=== PATIENT | female | born 1945 | race Caucasian/White ===

== ENCOUNTER 2017-05-19 10:17 | Observation (INO) | payer MEDICARE, MEDICAID ==
[~2017-05-19] VITALS: Ht 152.4 cm; Wt 79.0 kg
[~2017-05-19 10:17] MED LIST: ALBUTEROL; AZAT50TA9 PO; BUDE10.2 INH; CHOL5000 PO; DILT120C64 PO; LEVO112T4 PO; TIOT18CA INH
[2017-05-19] MEDS ORDERED: KETOROLAC 30 MG/1 ML IVPush ONE (11:00)
[2017-05-19] MEDS ORDERED: SODIUM CHLORIDE FLUSH 10ML SYR IVF ONE (11:00)
[2017-05-19 11:04] LABS: HEMATOCRIT 45.7 % (34.6-47.8); HEMOGLOBIN 15.3 g/dL (11.7-16.4); WHITE BLOOD COUNT 8.5 x10^3/uL (3.4-10)
[2017-05-19 11:15] LABS: BLOOD UREA NITROGEN 10 mg/dL (7-18)
[2017-05-19 11:21] LABS: IS PT STATUS REG ER OR PRE ER? YES
[2017-05-19] MEDS ORDERED: KETOROLAC 30 MG/1 ML ONE (11:26)
[2017-05-19 13:18] VITALS: BP 129/79
[2017-05-19] MEDS ORDERED: NITROGLYCERIN 0.4 MG BOTTLE (25 TABS) SL PRN (14:00)
[2017-05-19] MEDS ORDERED: hydrALAzine 20 MG/ML, 1ML IVPush PRN (14:00)
[2017-05-19] MEDS ORDERED: BISACODYL 10 MG SUPP PR PRN (14:00)
[2017-05-19] MEDS ORDERED: ONDANSETRON 2MG/ML, 2ML IVPush PRN (14:00)
[2017-05-19] MEDS ORDERED: ACETAMINOPHEN 325 MG TABLET PO PRN (14:00)
[2017-05-19] MEDS ORDERED: HYDROcodone/APAP 5/325 TABLET PO PRN (14:00)
[2017-05-19] MEDS ORDERED: morphine SULFATE 10 MG/ML, 1ML IVPush PRN (14:00)
[2017-05-19] MEDS ORDERED: POLYETHYLENE GLYCOL 17 GM PACKET PO PRN (14:00)
[2017-05-19] MEDS ORDERED: ENOXAPARIN 40 MG/0.4 ML SQ SCH (15:00)
[2017-05-19] MEDS ORDERED: OMNIPAQUE 350 MG/ML, 100ML BOTTLE ONE (15:52)
[2017-05-19 18:46] LABS: IS PT STATUS REG ER OR PRE ER? NO
[2017-05-19 19:50] VITALS: BP 109/71
[2017-05-19] MEDS ORDERED: ZOLPIDEM 5MG TABLET PO PRN (21:00)
[2017-05-19] MEDS ORDERED: DOCUSATE 100 MG CAPSULE PO PRN (21:00)
[2017-05-19] MEDS: SODIUM CHLORIDE FLUSH 10ML SYR IVF SCH (21:10)
[2017-05-20 01:09] LABS: IS PT STATUS REG ER OR PRE ER? NO
[2017-05-20 03:08] VITALS: BP 106/67
[2017-05-20 05:40] LABS: BLOOD UREA NITROGEN 14 mg/dL (7-18)
[2017-05-20] MEDS ORDERED: LEVOTHYROXINE 112 MCG TABLET PO SCH (06:00)
[2017-05-20] MEDS ORDERED: ASPIRIN 325 MG TABLET EC PO SCH (06:00)
[2017-05-20 07:33] VITALS: BP 115/72
[2017-05-20] MEDS: SODIUM CHLORIDE FLUSH 10ML SYR IVF SCH (07:51)
[2017-05-20] MEDS ORDERED: REGADENOSON 0.4 MG/5 ML SYRINGE ONE (08:45)
[2017-05-20] MEDS ORDERED: DILTIAZEM 120 MG CAP.ER.24H PO SCH (09:00)
[2017-05-20] MEDS ORDERED: FLUTICASONE/VILANTEROL 200-25MCG/INH INH SCH (09:00)
[2017-05-20] MEDS ORDERED: AZATHIOPRINE 50 MG TABLET PO SCH (09:00)
== END 2017-05-20 14:06 | disposition home or self-care (01) ==
LOC: ED 10:57 → INTOOBSV 11:56 → EDIP 11:56 → 5SO 12:51 → DCLOUNGE 05-20 14:06
PROVIDERS: ADMIT Family Medicine
DX: R07.89 Other chest pain (principal); M31.30 Wegener's granulomatosis without renal involvement; J44.9 Chronic obstructive pulmonary disease, unspecified; I11.9 Hypertensive heart disease without heart failure; J96.10 Chronic respiratory failure, unspecified whether with hypoxia or hypercapnia; E89.0 Postprocedural hypothyroidism; Z99.81 Dependence on supplemental oxygen; Z87.891 Personal history of nicotine dependence; Z82.49 Family history of ischemic heart disease and other diseases of the circulatory system
CPT/HCPCS: 36415; 71010; 71275; 78452; 80048; 80061; 82040; 84484; 85025; 85379; 93005; 93017; 96374; 99285; A9502; C9898; G0378; J1885; J2785; J7500; Q9967

== ENCOUNTER → 2017-06-09 | Outpatient (CLI) | payer MEDICARE, MEDICAID | END | disposition home or self-care (01) | LOC: CFH 10:28 | PROVIDERS: ATTEND Family Medicine | DX: Z13.820 Encounter for screening for osteoporosis (principal); M81.0 Age-related osteoporosis without current pathological fracture | CPT/HCPCS: 77080 ==

== ENCOUNTER → 2017-09-02 | Outpatient (CLI) | payer MEDICARE, MEDICAID | END | disposition home or self-care (01) | LOC: CFH 13:40 | PROVIDERS: ATTEND Internal Medicine Cardiovascular Disease | DX: I08.2 Rheumatic disorders of both aortic and tricuspid valves (principal); I27.0 Primary pulmonary hypertension; J44.9 Chronic obstructive pulmonary disease, unspecified; Z87.891 Personal history of nicotine dependence | CPT/HCPCS: 93306 ==

== ENCOUNTER → 2017-11-23 | Outpatient (CLI) | payer MEDICARE, MEDICAID | END | disposition home or self-care (01) | LOC: CFH 10:47 | PROVIDERS: ATTEND Internal Medicine | DX: J44.9 Chronic obstructive pulmonary disease, unspecified (principal); K80.20 Calculus of gallbladder without cholecystitis without obstruction | CPT/HCPCS: 71250 ==

== ENCOUNTER 2018-07-03 18:22 | Emergency (ER) | payer MEDICARE, MEDICAID ==
[~2018-07-03] VITALS: Ht 165.1 cm; Wt 86.4 kg
[2018-07-03] MEDS ORDERED: SODIUM CHLORIDE FLUSH 10ML SYR IVF ONE (19:00)
[2018-07-03 19:30] LABS: BASOPHILS # (AUTO) 0.07 x10^3/uL (0-0.1); BASOPHILS % (AUTO) 1 % (0-1); EOSINOPHILS # (AUTO) 0.31 x10^3/uL (0-0.4); EOSINOPHILS % (AUTO) 4 % (1-7); LYMPHOCYTES # (AUTO) 0.96 x10^3/uL (1-3.4); LYMPHOCYTES % (AUTO) 11 % (22-44); MD NO; MEAN CORPUSCULAR HEMOGLOBIN 32.4 pg (27.0-34.8); MEAN CORPUSCULAR HGB CONC 34.1 g/dL (32.4-35.8); MEAN PLATELET VOLUME 7.9 fL (7.4-10.4); MONOCYTES # (AUTO) 0.83 x10^3/uL (0.2-0.8); MONOCYTES % (AUTO) 10 % (2-9); NEUTROPHILS # (AUTO) 6.26 x10^3/uL (1.8-6.8); NEUTROPHILS % (AUTO) 74 % (42-75); PLATELET COUNT 249 x10^3/uL (130-400); RED BLOOD COUNT 4.67 x10^6/uL (3.82-5.3); RED CELL DISTRIBUTION WIDTH 13.9 % (9.6-15.2)
[2018-07-03 19:37] LABS: INTERNATIONAL NORMALIZED RATIO 0.97 (0.93-1.1)
[2018-07-03 19:39] LABS: ALBUMIN 3.3 g/dL (3.4-5.0); ANION GAP 7 mmol/L (5-15); CALCIUM 8.3 mg/dL (8.5-10.1); CHLORIDE 110 mmol/L (98-107); CREATININE 0.74 mg/dL (0.55-1.02)
[2018-07-03 19:43] LABS: TROPONIN I < 0.015 ng/mL (0.000-0.045)
[2018-07-03 22:25] VITALS: BP 135/65
== END 2018-07-03 22:26 | disposition home or self-care (01) ==
LOC: ED 21:12
DX: J43.9 Emphysema, unspecified (principal); I10 Essential (primary) hypertension; R79.1 Abnormal coagulation profile; Z87.891 Personal history of nicotine dependence
CPT/HCPCS: 36415; 71045; 80048; 82040; 83605; 83880; 84484; 85025; 85610; 85730; 87040; 93005; 99285

== ENCOUNTER 2018-10-06 16:46 | Outpatient (CLI) | payer MEDICARE, MEDICAID ==
[2018-10-15] MEDS ORDERED: LEVO100T5 PO (14:08)
[2018-10-15] MEDS ORDERED: FLUT1BLS3 INH (14:09)
[2018-10-15] MEDS ORDERED: ALBU0.63 NEB (14:11)
== END 2018-10-06 23:59 | disposition home or self-care (01) ==
LOC: CFH 16:46
PROVIDERS: ATTEND Nurse Practitioner Primary Care
DX: J92.9 Pleural plaque without asbestos (principal)
CPT/HCPCS: 71046

== ENCOUNTER 2019-02-16 13:23 | Emergency (ER) | payer MEDICARE, MEDICAID ==
[~2019-02-16] VITALS: Ht 152.4 cm; Wt 80.0 kg
[~2019-02-16 13:23] MED LIST changes: +ALBU0.63 NEB; +FLUT1BLS3 INH; +LEVO100T5 PO
[2019-02-16] MEDS ORDERED: ASPIRIN 81 MG TABLET CHEW PO ONE (13:30)
[2019-02-16 13:48] LABS: BASOPHILS # (AUTO) 0.02 x10^3/uL (0-0.1); BASOPHILS % (AUTO) 0 % (0-1); EOSINOPHILS % (AUTO) 0 % (1-7); LYMPHOCYTES # (AUTO) 0.45 x10^3/uL (1-3.4); LYMPHOCYTES % (AUTO) 3 % (22-44); MD NO; MEAN CORPUSCULAR HGB CONC 33.3 g/dL (32.4-35.8); MEAN CORPUSCULAR VOLUME 96.2 fL (80-100); MONOCYTES # (AUTO) 0.66 x10^3/uL (0.2-0.8); MONOCYTES % (AUTO) 4 % (2-9); NEUTROPHILS # (AUTO) 15.14 x10^3/uL (1.8-6.8); NEUTROPHILS % (AUTO) 93 % (42-75); PLATELET COUNT 238 x10^3/uL (130-400); RED BLOOD COUNT 4.75 x10^6/uL (3.82-5.3); RED CELL DISTRIBUTION WIDTH 14.3 % (9.6-15.2)
--- NOTE | 2019-02-16 13:48 | NUR ---
PT PLACED ON HEART MONITOR, BP CUFF, PULSE OX. SEE TRIAGE NOTE. PT DENIES PAIN OR DISCOMFORT AT THIS TIME. CALL LIGHT WITHIN REACH.
[2019-02-16 13:59] LABS: ALANINE AMINOTRANSFERASE 15 U/L (12-78); ALBUMIN 3.5 g/dL (3.4-5.0); ANION GAP 8 mmol/L (5-15); CALCIUM 8.6 mg/dL (8.5-10.1); CHLORIDE 107 mmol/L (98-107); CREATININE 0.88 mg/dL (0.55-1.02)
[2019-02-16] MEDS ORDERED: PLEASE ENTER HEIGHT AND WEIGHT MC SCH (14:00)
[2019-02-16 14:03] LABS: ALKALINE PHOSPHATASE 104 U/L (45-117); BILIRUBIN,TOTAL 0.4 mg/dL (0.2-1.0); TOTAL PROTEIN 7.2 g/dL (6.4-8.2); TROPONIN I < 0.015 ng/mL (0.000-0.045)
--- NOTE | 2019-02-16 14:50 | NUR ---
PT UP AND AMBULATED TO BR WITH STEADY GAIT. PT MISSED HAT COLLECTION FOR UA, ERP AWARE, UA CANCELLED. REPORT TO GUNNER CAREY, TRANSFER OF CARE AT THIS TIME.
--- NOTE | 2019-02-16 14:52 | NUR ---
Bedside SBAR report received from RN, Lily. Pt back to bed after attempting to give urine sample, replaced on monitors. Dr. Diggs to bedside to discuss ED findings and POC. Pt agrees to plan to discharge and follow up with gen surg outpatient or return to ED if worsening symptoms.
[2019-02-16 14:55] VITALS: BP 139/76
--- NOTE | 2019-02-16 15:38 | NUR ---
Patient/Caregiver given discharge instructions and they have confirmed that they understand the instructions. Patient ambulatory with steady gait.
[2019-02-16] MEDS ORDERED: TIOT18CA INH (18:32)
== END 2019-02-16 15:39 | disposition home or self-care (01) ==
LOC: ED 15:21
DX: R07.2 Precordial pain (principal); K80.70 Calculus of gallbladder and bile duct without cholecystitis without obstruction; I10 Essential (primary) hypertension; J44.9 Chronic obstructive pulmonary disease, unspecified; Z86.73 Personal history of transient ischemic attack (TIA), and cerebral infarction without residual deficits
CPT/HCPCS: 36415; 71045; 76700; 80053; 83880; 84484; 85025; 93005; 99284

== ENCOUNTER 2019-02-16 16:56 | Inpatient (IN) | payer MEDICARE, MEDICAID ==
[~2019-02-16] VITALS: Ht 154.9 cm; Wt 78.0 kg
--- NOTE | 2019-02-16 18:25 | NUR ---
Assumed care of patient. Seen here earlier today and was told she needed a cholecystectomy. Patient left AMA, but came back d/t persistent pain. NAD. Placed on NIBP and pulse ox. Will continue to monitor.
[2019-02-16] MEDS ORDERED: TIOT18CA INH (18:32)
[2019-02-16 19:03] LABS: ALANINE AMINOTRANSFERASE 16 U/L (12-78); ALBUMIN 3.5 g/dL (3.4-5.0); ANION GAP 8 mmol/L (5-15); CALCIUM 8.5 mg/dL (8.5-10.1); CHLORIDE 109 mmol/L (98-107)
[2019-02-16 19:05] LABS: ALKALINE PHOSPHATASE 103 U/L (45-117); BILIRUBIN,TOTAL 0.2 mg/dL (0.2-1.0); TOTAL PROTEIN 7.3 g/dL (6.4-8.2)
--- NOTE | 2019-02-16 19:31 | NUR ---
EDT at bedside attempting IV start. Patient is difficult stick.
--- NOTE | 2019-02-16 19:48 | NUR ---
Report to BURNER SHAFT. CHERRY Hernandez at bedside performing US IV.
[2019-02-16] MEDS ORDERED: SODIUM CHLORIDE 0.9% 1,000 ML IV SCH (19:57)
[2019-02-16] MEDS ORDERED: ACETAMINOPHEN 325 MG TABLET PO PRN (20:00)
[2019-02-16] MEDS ORDERED: morphine SULFATE 10 MG/ML, 1ML IVPush PRN (20:00)
[2019-02-16] MEDS ORDERED: POLYETHYLENE GLYCOL 17 GM PACKET PO PRN (20:00)
[2019-02-16] MEDS ORDERED: BISACODYL 10 MG SUPP PR PRN (20:00)
[2019-02-16] MEDS ORDERED: ONDANSETRON 2MG/ML, 2ML IVPush PRN (20:00)
[2019-02-16] MEDS ORDERED: BUPIVACAINE/PF-EPI 0.5% 1:200K ONE (20:11)
[2019-02-16] MEDS ORDERED: BUPIVACAINE/PF-EPI 0.5% 1:200K IM ONE (20:28)
[2019-02-16] MEDS ORDERED: ONDANSETRON 2MG/ML, 2ML ONE (20:52)
[2019-02-16] MEDS ORDERED: SUCCINYLCHOLINE 20 MG/ML, 10ML ONE (20:52)
[2019-02-16] MEDS ORDERED: PROPOFOL 10 MG/ML, 20ML ONE (20:52)
[2019-02-16] MEDS ORDERED: CEFOTETAN 2 GM ONE (20:52)
[2019-02-16] MEDS ORDERED: DEXAMETHASONE 4 MG/ML, 1ML ONE (20:52)
[2019-02-16] MEDS ORDERED: MEPERIDINE/PF 25MG/0.5ML IVPush PRN (21:30)
[2019-02-16] MEDS ORDERED: hydrALAzine 20 MG/ML, 1ML IV PRN (21:30)
[2019-02-16] MEDS ORDERED: HYDROmorphone 2 MG/ML, 1ML IVPush PRN (21:30)
[2019-02-16] MEDS ORDERED: LABETALOL 5MG/ML, 20ML IV PRN (21:30)
[2019-02-16] MEDS ORDERED: PROMETHAZINE 25 MG/ML, 1ML IV PRN (21:30)
[2019-02-16] MEDS ORDERED: OXYcodone 5 MG/5 ML ORAL.SOL UDC PO PRN (21:30)
[2019-02-16] MEDS ORDERED: ONDANSETRON 2MG/ML, 2ML IV PRN (21:30)
[2019-02-16] MEDS ORDERED: ALBUTEROL/IPRATROPIUM 2.5MG/0.5MG, 3 ML NPPB PRN (21:30)
[2019-02-16] MEDS ORDERED: FENTANYL PF 100 MCG/2ML ONE (21:51)
[2019-02-16] MEDS ORDERED: OXYcodone 5 MG/5 ML ORAL.SOL UDC ONE (21:51)
[2019-02-16] MEDS ORDERED: ALBUTEROL/IPRATROPIUM 2.5MG/0.5MG, 3 ML ONE (21:52)
[2019-02-16] MEDS: FENTANYL PF 100 MCG/2ML IV PRN ×2 (21:59→22:09)
[2019-02-16 22:53] VITALS: BP 124/66
[2019-02-17] VITALS: BP 115/68
[2019-02-17 04:37] VITALS: BP 107/64
[2019-02-17] MEDS: LEVOTHYROXINE 100 MCG TABLET PO SCH (05:37)
[2019-02-17 05:44] LABS: MEAN CORPUSCULAR HEMOGLOBIN 31.9 pg (27.0-34.8); MEAN CORPUSCULAR VOLUME 96.7 fL (80-100); MEAN PLATELET VOLUME 8.2 fL (7.4-10.4); PLATELET COUNT 209 x10^3/uL (130-400); RED CELL DISTRIBUTION WIDTH 14.4 % (9.6-15.2)
[2019-02-17 06:07] LABS: BASOPHILS # (AUTO) 0.03 x10^3/uL (0-0.1); BASOPHILS % (AUTO) 0 % (0-1); EOSINOPHILS % (AUTO) 0 % (1-7); LYMPHOCYTES # (AUTO) 0.13 x10^3/uL (1-3.4); LYMPHOCYTES % (AUTO) 1 % (22-44); MD SCAN; MONOCYTES # (AUTO) 0.98 x10^3/uL (0.2-0.8); MONOCYTES % (AUTO) 5 % (2-9); NEUTROPHILS # (AUTO) 17.54 x10^3/uL (1.8-6.8); NEUTROPHILS % (AUTO) 94 % (42-75)
[2019-02-17 06:21] LABS: ALANINE AMINOTRANSFERASE 41 U/L (12-78); ALBUMIN 3.2 g/dL (3.4-5.0); ANION GAP 7 mmol/L (5-15); CALCIUM 8.1 mg/dL (8.5-10.1); CHLORIDE 107 mmol/L (98-107)
[2019-02-17 06:24] LABS: ALKALINE PHOSPHATASE 96 U/L (45-117); BILIRUBIN,TOTAL 0.5 mg/dL (0.2-1.0); CREATININE 1.16 mg/dL (0.55-1.02); TOTAL PROTEIN 6.5 g/dL (6.4-8.2)
[2019-02-17] MEDS: IPRATROPIUM 0.5 MG/2.5 ML INHA NPPB SCH ×4 (07:00→19:46)
[2019-02-17 07:30] VITALS: BP 105/43
[2019-02-17] MEDS: SENNA/DOCUSATE TABLET PO SCH (08:24)
[2019-02-17] MEDS: DILTIAZEM 120 MG CAP.ER.24H PO SCH (08:25)
[2019-02-17] MEDS: AZATHIOPRINE 50 MG TABLET PO SCH (08:25)
[2019-02-17] MEDS: OXYcodone/APAP 5/325MG TABLET PO PRN ×3 (12:09→21:20)
[2019-02-17] MEDS ORDERED: PROMETHAZINE 25MG TABLET PO PRN (13:00)
[2019-02-17 14:21] VITALS: BP 105/68
[2019-02-17 20:52] VITALS: BP 109/64
[2019-02-18 00:05] VITALS: BP 125/67
[2019-02-18] MEDS: OXYcodone/APAP 5/325MG TABLET PO PRN ×3 (01:02→09:02)
[2019-02-18 05:02] LABS: MEAN CORPUSCULAR HGB CONC 32.9 g/dL (32.4-35.8); MEAN CORPUSCULAR VOLUME 97.2 fL (80-100); MEAN PLATELET VOLUME 8.2 fL (7.4-10.4); PLATELET COUNT 173 x10^3/uL (130-400); RED BLOOD COUNT 4.19 x10^6/uL (3.82-5.3); RED CELL DISTRIBUTION WIDTH 14.4 % (9.6-15.2)
[2019-02-18 05:09] LABS: ALBUMIN 2.7 g/dL (3.4-5.0); ANION GAP 4 mmol/L (5-15); CHLORIDE 105 mmol/L (98-107)
[2019-02-18 05:15] LABS: ALANINE AMINOTRANSFERASE 37 U/L (12-78); ALKALINE PHOSPHATASE 97 U/L (45-117); BILIRUBIN,TOTAL 0.4 mg/dL (0.2-1.0); CREATININE 0.83 mg/dL (0.55-1.02)
[2019-02-18] MEDS: LEVOTHYROXINE 100 MCG TABLET PO SCH (05:15)
[2019-02-18 05:30] LABS: BASOPHILS % (AUTO) 0 % (0-1); EOSINOPHILS # (AUTO) 0.11 x10^3/uL (0-0.4); EOSINOPHILS % (AUTO) 1 % (1-7); LYMPHOCYTES # (AUTO) 0.73 x10^3/uL (1-3.4); LYMPHOCYTES % (AUTO) 6 % (22-44); MD SCAN; MONOCYTES # (AUTO) 1.57 x10^3/uL (0.2-0.8); MONOCYTES % (AUTO) 12 % (2-9); NEUTROPHILS # (AUTO) 10.54 x10^3/uL (1.8-6.8); NEUTROPHILS % (AUTO) 81 % (42-75)
[2019-02-18] MEDS: IPRATROPIUM 0.5 MG/2.5 ML INHA NPPB SCH ×3 (07:00→12:20)
[2019-02-18 07:01] VITALS: BP 110/72
[2019-02-18] MEDS: POLYETHYLENE GLYCOL 17 GM PACKET PO SCH ×2 (09:00→10:51)
[2019-02-18] MEDS: DILTIAZEM 120 MG CAP.ER.24H PO SCH (09:02)
[2019-02-18] MEDS: AZATHIOPRINE 50 MG TABLET PO SCH (09:02)
[2019-02-18] MEDS: SENNA/DOCUSATE TABLET PO SCH (09:02)
[2019-02-18] MEDS ORDERED: POLY17PO5 PO (12:33)
[2019-02-18] MEDS ORDERED: DOCU-131 PO (12:33)
[2019-02-18] MEDS ORDERED: OXYC1TAB7 PO (12:33)
[2019-02-18 13:28] VITALS: BP 130/80
== END 2019-02-18 13:54 | disposition home or self-care (01) | DRG 417 ==
LOC: ED 19:27 → EDIP 19:29 → 4NOR 23:00 → DCLOUNGE 02-18 13:41
PROVIDERS: ADMIT Internal Medicine; ATTEND Internal Medicine
PROC: 0FT44ZZ Resection of Gallbladder, Percutaneous Endoscopic Approach (ICD-10-PCS; principal; 2019-02-16 21:00)
DX: K80.20 Calculus of gallbladder without cholecystitis without obstruction (principal); J96.20 Acute and chronic respiratory failure, unspecified whether with hypoxia or hypercapnia; M31.30 Wegener's granulomatosis without renal involvement; D89.9 Disorder involving the immune mechanism, unspecified; E11.9 Type 2 diabetes mellitus without complications; E89.0 Postprocedural hypothyroidism; F17.200 Nicotine dependence, unspecified, uncomplicated; I10 Essential (primary) hypertension; J43.9 Emphysema, unspecified; K76.0 Fatty (change of) liver, not elsewhere classified; Z66 Do not resuscitate; Z99.81 Dependence on supplemental oxygen
CPT/HCPCS: 36415; 71045; 76700; 80053; 83690; 83880; 84145; 84484; 85025; 88304; 93005; 94640; 96372; 99285; G0378; J1100; J2405; J2704; J3010; J7500; J7644; J0330; J2270; J3490; J7030

== ENCOUNTER → 2019-03-21 | Outpatient (CLI) | payer MEDICARE, MEDICAID ==
[~2019-03-21] MED LIST changes: +CEFOTETAN PMX 2GM/50ML 50 ML ONE; +DEXAMETHASONE 4 MG/ML, 1ML ONE; +DOCU-131 PO; +FENTANYL PF 250 MCG/5ML ONE; +ONDANSETRON 2MG/ML, 2ML ONE; +OXYC1TAB7 PO; +POLY17PO5 PO; +PROPOFOL 10 MG/ML, 20ML ONE; +SUCCINYLCHOLINE 20 MG/ML, 10ML ONE
== END | disposition home or self-care (01) ==
LOC: CFH 13:23
PROVIDERS: ATTEND Internal Medicine
DX: J43.2 Centrilobular emphysema (principal); M31.30 Wegener's granulomatosis without renal involvement; Z98.890 Other specified postprocedural states
CPT/HCPCS: 71250; J1100; J2405; J2704; J3010; J0330; J3490

== ENCOUNTER 2019-04-30 17:57 | Inpatient (IN) | payer MEDICARE, MEDICAID ==
[~2019-04-30] VITALS: Ht 154.9 cm; Wt 74.1 kg
[~2019-04-30 17:57] MED LIST changes: -CEFOTETAN PMX 2GM/50ML 50 ML ONE; -DEXAMETHASONE 4 MG/ML, 1ML ONE; -FENTANYL PF 250 MCG/5ML ONE; -ONDANSETRON 2MG/ML, 2ML ONE; -PROPOFOL 10 MG/ML, 20ML ONE; -SUCCINYLCHOLINE 20 MG/ML, 10ML ONE
[2019-04-30] MEDS ORDERED: ASPIRIN 81 MG TABLET CHEW PO ONE (18:30)
[2019-04-30] MEDS ORDERED: ASPIRIN 81 MG TABLET CHEW ONE (18:36)
[2019-04-30 18:43] LABS: BASOPHILS # (AUTO) 0.03 x10^3/uL (0-0.1); BASOPHILS % (AUTO) 0 % (0-1); EOSINOPHILS # (AUTO) 0.34 x10^3/uL (0-0.4); EOSINOPHILS % (AUTO) 4 % (1-7); LYMPHOCYTES # (AUTO) 1.24 x10^3/uL (1-3.4); LYMPHOCYTES % (AUTO) 15 % (22-44); MD NO; MEAN CORPUSCULAR HEMOGLOBIN 31.6 pg (27.0-34.8); MEAN CORPUSCULAR HGB CONC 33.1 g/dL (32.4-35.8); MEAN CORPUSCULAR VOLUME 95.6 fL (80-100); MEAN PLATELET VOLUME 8.2 fL (7.4-10.4); MONOCYTES # (AUTO) 0.76 x10^3/uL (0.2-0.8); MONOCYTES % (AUTO) 9 % (2-9); NEUTROPHILS # (AUTO) 6.12 x10^3/uL (1.8-6.8); NEUTROPHILS % (AUTO) 72 % (42-75); PLATELET COUNT 224 x10^3/uL (130-400); RED BLOOD COUNT 4.68 x10^6/uL (3.82-5.3); RED CELL DISTRIBUTION WIDTH 14.1 % (9.6-15.2)
--- NOTE | 2019-04-30 18:50 | NUR ---
THIS IS A 73 YO FEMALE WHO PRESENTS TO THE ER C/O LUQ PAIN RADIATING AROUND TO BACK SINCE 0800 THIS MORNING AND DESCRIBED "UNCOMFORTABLE LIKE MUSCLE PAIN" AND WORSE WITH MOVEMENT. PT RATES DISCMFORT AT 6/10. PT DENIES N/V/D OR WORSENING SOB. PT HAS HX OF COPD AND IS ON 5LNC HOME O2 AT ALL TIMES. PT AO X 4. SKIN PWD. RESP EVEN AND UNLABORED. PT ABLE TO SPEAK IN FULL 10-12 WORD SENTENCES W/O DIFFICULTY. PT ON CONT SUPERVISOR CHEMICAL, SPO2 AND BP MONITORS. CALL LIGHT WITHIN REACH. WILL CONT TO MONITOR PT.
[2019-04-30 18:54] LABS: ALBUMIN 3.3 g/dL (3.4-5.0); ANION GAP 7 mmol/L (5-15); CALCIUM 8.8 mg/dL (8.5-10.1); CHLORIDE 110 mmol/L (98-107)
[2019-04-30 19:00] LABS: ALANINE AMINOTRANSFERASE 16 U/L (12-78); ALKALINE PHOSPHATASE 103 U/L (45-117); BILIRUBIN,TOTAL 0.5 mg/dL (0.2-1.0); CREATININE 0.85 mg/dL (0.55-1.02); TOTAL PROTEIN 7.5 g/dL (6.4-8.2); TROPONIN I < 0.015 ng/mL (0.000-0.045)
--- NOTE | 2019-04-30 19:25 | NUR ---
PT TO IMAGING VIA [employer] AT THIS TIME.
[2019-04-30] MEDS ORDERED: MORPHINE SULFATE 4 MG/ML, 1ML ONE (19:50)
[2019-04-30] MEDS ORDERED: ONDANSETRON 2MG/ML, 2ML ONE (19:50)
[2019-04-30] MEDS ORDERED: MORPHINE SULFATE 4 MG/ML, 1ML IVPush PRN (20:00)
[2019-04-30] MEDS ORDERED: ONDANSETRON 2MG/ML, 2ML IVPush ONE (20:00)
[2019-04-30] MEDS ORDERED: OMNIPAQUE 350 MG/ML, 100ML BOTTLE ONE (20:00)
--- NOTE | 2019-04-30 20:06 | NUR ---
OPAL PA AT BEDSIDE FOR RECHECK/EXPLANATION OF RESULTS. PT REQUESTED PAIN MEDICATION FOR CONT 6/10 SHOULDER/SIDE PAIN. PT MEDICATED ORDERED. PT ALSO REQUESTED WATER, OKAY WITH ERMD THIERNO, PT PROVIDED WITH WATER. PT REPOSITIONED FOR COMFORT. PT NSR 90'S ON BRUSH OR BROOM CUTTER. RESP EVEN AND UNLABORED, PT ABLE TO SPEAK IN FULL 10-12 WORD SENTENCES W/O DIFFICULTY. PT ON CONT BP, CARDIAC AND O2 MONITORS. CALL LIGHT WITHIN REACH. WILL CONT TO MONITOR PT.
[2019-04-30] MEDS ORDERED: POTASSIUM CHLORIDE 20 MEQ TAB.ER.PRT PO ONE (20:30)
[2019-04-30] MEDS ORDERED: OXYcodone/APAP 5/325MG TABLET PO PRN (20:30)
[2019-04-30] MEDS ORDERED: FUROSEMIDE 40 MG/4 ML IV ONE (20:30)
--- NOTE | 2019-04-30 20:36 | NUR ---
ADMITTING MD MCCLELLAND AT BEDSIDE FOR EVAL. PT ON CONT BP, CARDIAC, AND O2 MONITORS. CALL LIGHT WITHIN REACH. CALL LIGHT WITHIN REACH. WILL CONT TO MONITOR PT.
[2019-04-30] MEDS ORDERED: FUROSEMIDE 40 MG/4 ML ONE (20:48)
[2019-04-30] MEDS ORDERED: POTASSIUM CHLORIDE 20 MEQ TAB.ER.PRT ONE ×2 (20:49→21:27)
[2019-04-30] MEDS ORDERED: ACETAMINOPHEN 325 MG TABLET PO PRN (21:00)
[2019-04-30] MEDS ORDERED: ONDANSETRON 2MG/ML, 2ML IVPush PRN (21:00)
[2019-04-30] MEDS ORDERED: DOCUSATE 100 MG CAPSULE ONE ×2 (21:24→21:27)
[2019-04-30] MEDS: DOCUSATE 100 MG CAPSULE PO SCH (21:32)
[2019-04-30] MEDS ORDERED: ALBUTEROL/IPRATROPIUM 2.5MG/0.5MG, 3 ML ONE (21:45)
[2019-04-30 22:25] VITALS: BP 111/67
[2019-04-30] MEDS: IPRATROPIUM 0.5 MG/2.5 ML INHA NPPB SCH (22:35)
[2019-04-30] MEDS: ALBUTEROL/IPRATROPIUM 2.5MG/0.5MG, 3 ML HHN PRN (22:35)
[2019-05-01 01:10] VITALS: BP 93/58
[2019-05-01 05:15] LABS: BASOPHILS # (AUTO) 0.04 x10^3/uL (0-0.1); BASOPHILS % (AUTO) 1 % (0-1); EOSINOPHILS # (AUTO) 0.35 x10^3/uL (0-0.4); EOSINOPHILS % (AUTO) 4 % (1-7); LYMPHOCYTES # (AUTO) 1.17 x10^3/uL (1-3.4); LYMPHOCYTES % (AUTO) 13 % (22-44); MD NO; MEAN CORPUSCULAR HEMOGLOBIN 31.7 pg (27.0-34.8); MEAN CORPUSCULAR HGB CONC 33.2 g/dL (32.4-35.8); MEAN CORPUSCULAR VOLUME 95.7 fL (80-100); MEAN PLATELET VOLUME 8.3 fL (7.4-10.4); MONOCYTES # (AUTO) 1.08 x10^3/uL (0.2-0.8); MONOCYTES % (AUTO) 12 % (2-9); NEUTROPHILS # (AUTO) 6.21 x10^3/uL (1.8-6.8); NEUTROPHILS % (AUTO) 70 % (42-75); PLATELET COUNT 203 x10^3/uL (130-400); RED BLOOD COUNT 4.45 x10^6/uL (3.82-5.3); RED CELL DISTRIBUTION WIDTH 14.9 % (9.6-15.2)
[2019-05-01 05:27] LABS: ANION GAP 7 mmol/L (5-15); CALCIUM 8.4 mg/dL (8.5-10.1); CHLORIDE 105 mmol/L (98-107)
[2019-05-01 05:33] LABS: CREATININE 0.91 mg/dL (0.55-1.02); TROPONIN I < 0.015 ng/mL (0.000-0.045)
[2019-05-01] MEDS: IPRATROPIUM 0.5 MG/2.5 ML INHA NPPB SCH ×3 (06:13→20:40)
[2019-05-01] MEDS: ALBUTEROL/IPRATROPIUM 2.5MG/0.5MG, 3 ML HHN PRN ×2 (06:13→20:39)
[2019-05-01 06:49] VITALS: BP 111/74
[2019-05-01] MEDS: LEVOTHYROXINE 100 MCG TABLET PO SCH (07:51)
[2019-05-01] MEDS ORDERED: TEMPLATE NON-FORMULARY MED. (Diltiazem Hcl (Cartia Xt) 120 MG) PO SCH (09:00)
[2019-05-01] MEDS ORDERED: TEMPLATE NON-FORMULARY MED. (Tiotropium Bromide** (Spiriva**) 18 MCG) INH SCH (09:00)
[2019-05-01] MEDS: DOCUSATE 100 MG CAPSULE PO SCH ×2 (10:53→21:00)
[2019-05-01] MEDS: METHOCARBAMOL 500 MG TABLET PO SCH ×3 (10:53→21:00)
[2019-05-01] MEDS: LIDODERM 5% PATCH TD SCH (10:54)
[2019-05-01] MEDS: DILTIAZEM 120 MG CAP.ER.24H PO SCH (10:54)
[2019-05-01 12:18] VITALS: BP 106/70
[2019-05-01 20:28] VITALS: BP 115/76
[2019-05-02 02:26] VITALS: BP 109/70
[2019-05-02] MEDS: METHOCARBAMOL 500 MG TABLET PO SCH ×2 (05:39→11:32)
[2019-05-02] MEDS: LEVOTHYROXINE 100 MCG TABLET PO SCH (05:39)
[2019-05-02 06:52] VITALS: BP 98/65
[2019-05-02] MEDS: ALBUTEROL/IPRATROPIUM 2.5MG/0.5MG, 3 ML HHN PRN (07:22)
[2019-05-02] MEDS: IPRATROPIUM 0.5 MG/2.5 ML INHA NPPB SCH (07:22)
[2019-05-02] MEDS: DOCUSATE 100 MG CAPSULE PO SCH (09:00)
[2019-05-02] MEDS: LIDODERM 5% PATCH TD SCH (09:18)
[2019-05-02] MEDS: DILTIAZEM 120 MG CAP.ER.24H PO SCH (09:18)
[2019-05-02] MEDS ORDERED: METH500T7 PO (12:17)
[2019-05-02] MEDS ORDERED: LIDO700A20 TD (12:17)
== END 2019-05-02 13:30 | disposition home or self-care (01) | DRG 313 ==
LOC: ED 20:16 → EDIP 20:39 → 4WST 22:13 → DCLOUNGE 05-02 13:21
PROVIDERS: ADMIT Internal Medicine; ATTEND Internal Medicine
DX: R07.89 Other chest pain (principal); J96.10 Chronic respiratory failure, unspecified whether with hypoxia or hypercapnia; M31.30 Wegener's granulomatosis without renal involvement; J96.11 Chronic respiratory failure with hypoxia; I27.20 Pulmonary hypertension, unspecified; E11.9 Type 2 diabetes mellitus without complications; E89.0 Postprocedural hypothyroidism; G89.29 Other chronic pain; M54.9 Dorsalgia, unspecified; I10 Essential (primary) hypertension; J43.9 Emphysema, unspecified; Z79.890 Hormone replacement therapy; Z87.891 Personal history of nicotine dependence; Z99.81 Dependence on supplemental oxygen
CPT/HCPCS: 36415; 71045; 71275; 80048; 80053; 83880; 84439; 84443; 84484; 85025; 93005; 93306; 94640; 96374; 96375; G0378; J1940; J2405; J7620; J7644; Q9967; J2270

== ENCOUNTER → 2019-11-07 | Outpatient (CLI) | payer MEDICARE, MEDICAID ==
[~2019-11-07] MED LIST changes: +DOXY100C2 PO; +LIDO700A20 TD; +METH500T7 PO; +OMNIPAQUE 350 MG/ML, 75ML BOTTLE ONE; +PRED20TA PO; +SPIR50TA4 PO; +TREP2.5T PO
== END | disposition home or self-care (01) ==
LOC: CFH 12:55
PROVIDERS: ATTEND Internal Medicine
DX: J32.0 Chronic maxillary sinusitis (principal); J01.10 Acute frontal sinusitis, unspecified; J44.9 Chronic obstructive pulmonary disease, unspecified; I27.29 Other secondary pulmonary hypertension; M31.30 Wegener's granulomatosis without renal involvement; R09.02 Hypoxemia
CPT/HCPCS: 70487; Q9967

== ENCOUNTER 2020-01-19 19:25 | Emergency (ER) | payer MEDICARE, MEDICAID ==
[~2020-01-19] VITALS: Ht 152.4 cm; Wt 65.9 kg
[~2020-01-19 19:25] MED LIST changes: -OMNIPAQUE 350 MG/ML, 75ML BOTTLE ONE
[2020-01-19] MEDS ORDERED: ALBUTEROL/IPRATROPIUM 2.5MG/0.5MG, 3 ML ONE (19:56)
--- NOTE | 2020-01-19 19:59 | NUR ---
PT CAME IN CO OF "EVERYTIME I GET UP AND MOVE AROUND I BECOME SOB AND MY PULSE OX DROPS TO THE LOW 80S". PT HAS HX OF COPD. WEARS 5 LITERS VIA NC ALL THE TIME AT HOME. PT IS CURRENTLY 98% ON 5 LITERS. RESTING IN [facility]. IV STARTED. EKG COMPLETE.
[2020-01-19] MEDS ORDERED: ALBUTEROL/IPRATROPIUM 2.5MG/0.5MG, 3 ML NPPB ONE (20:00)
--- NOTE | 2020-01-19 20:24 | NUR ---
PT RESTING IN [place]. PAN[place]OS. LAB IN WITH PT AT THIS TIME
--- NOTE | 2020-01-19 20:46 | NUR ---
BREATHING TREATMENT STARTED. PT TOLERATING WELL
[2020-01-19 20:59] LABS: BASOPHILS # (AUTO) 0.06 x10^3/uL (0-0.1); BASOPHILS % (AUTO) 1 % (0-1); EOSINOPHILS # (AUTO) 0.22 x10^3/uL (0-0.4); EOSINOPHILS % (AUTO) 2 % (1-7); LYMPHOCYTES # (AUTO) 1.05 x10^3/uL (1-3.4); LYMPHOCYTES % (AUTO) 10 % (22-44); MD NO; MEAN CORPUSCULAR HEMOGLOBIN 29.4 pg (27.0-34.8); MEAN CORPUSCULAR HGB CONC 32.7 g/dL (32.4-35.8); MEAN CORPUSCULAR VOLUME 89.8 fL (80-100); MEAN PLATELET VOLUME 7.7 fL (7.4-10.4); MONOCYTES # (AUTO) 0.83 x10^3/uL (0.2-0.8); MONOCYTES % (AUTO) 8 % (2-9); NEUTROPHILS # (AUTO) 8.64 x10^3/uL (1.8-6.8); NEUTROPHILS % (AUTO) 80 % (42-75); PLATELET COUNT 267 x10^3/uL (130-400); RED BLOOD COUNT 5.08 x10^6/uL (3.82-5.3); RED CELL DISTRIBUTION WIDTH 14.6 % (9.6-15.2)
[2020-01-19 21:07] LABS: ALANINE AMINOTRANSFERASE 21 U/L (12-78); ALBUMIN 3.3 g/dL (3.4-5.0); ANION GAP 8 mmol/L (5-15); CHLORIDE 106 mmol/L (98-107); CREATININE 0.87 mg/dL (0.55-1.02)
[2020-01-19 21:12] LABS: ALKALINE PHOSPHATASE 127 U/L (45-117); BILIRUBIN,TOTAL 0.3 mg/dL (0.2-1.0); TOTAL PROTEIN 7.3 g/dL (6.4-8.2); TROPONIN I < 0.015 ng/mL (0.000-0.045)
[2020-01-19 21:43] VITALS: BP 110/64
--- NOTE | 2020-01-19 21:43 | NUR ---
PT RESTING IN [place]. WATCHING TV. REPORTS THAT "I FEEL BETTER AFTER THAT BREATHING TREATMENT"
== END 2020-01-19 23:20 | disposition other institution (70) ==
LOC: ED 19:52
DX: J44.1 Chronic obstructive pulmonary disease with (acute) exacerbation (principal); J98.01 Acute bronchospasm; I10 Essential (primary) hypertension; E11.9 Type 2 diabetes mellitus without complications; Z87.891 Personal history of nicotine dependence
CPT/HCPCS: 36415; 71045; 80053; 83605; 83880; 84484; 85025; 87040; 93005; 94640; 99285

== ENCOUNTER → 2020-03-18 | Outpatient (CLI) | payer MEDICARE, MEDICAID | END | disposition home or self-care (01) | LOC: CFH 14:53 | PROVIDERS: ATTEND Internal Medicine Cardiovascular Disease | DX: I08.8 Other rheumatic multiple valve diseases (principal); I27.29 Other secondary pulmonary hypertension | CPT/HCPCS: 93306 ==

== ENCOUNTER → 2020-10-02 | Outpatient (CLI) | payer MEDICARE, MEDICAID ==
[~2020-10-02] MED LIST changes: +APIX5TAB PO; +FLUT1BLS INH; +LEVO100V8 PO; +MACI10TA PO
== END | disposition home or self-care (01) ==
LOC: CFH 12:54
PROVIDERS: ATTEND Internal Medicine
DX: J43.9 Emphysema, unspecified (principal); I27.20 Pulmonary hypertension, unspecified; I25.10 Atherosclerotic heart disease of native coronary artery without angina pectoris; M85.88 Other specified disorders of bone density and structure, other site; M31.30 Wegener's granulomatosis without renal involvement; M43.8X4 Other specified deforming dorsopathies, thoracic region; J96.21 Acute and chronic respiratory failure with hypoxia
CPT/HCPCS: 71250

== ENCOUNTER 2021-02-11 14:13 | Emergency (ER) | payer MEDICARE, MEDICAID ==
[~2021-02-11] VITALS: Ht 152.4 cm; Wt 61.0 kg
[~2021-02-11 14:13] MED LIST changes: +METH-639 PO; -METH500T7 PO
[2021-02-11 14:17] VITALS: BP 114/75
== END 2021-02-11 14:44 | disposition home or self-care (01) ==
LOC: ED 14:38
DX: J96.10 Chronic respiratory failure, unspecified whether with hypoxia or hypercapnia (principal); J44.9 Chronic obstructive pulmonary disease, unspecified; R94.31 Abnormal electrocardiogram [ECG] [EKG]; I10 Essential (primary) hypertension; E11.9 Type 2 diabetes mellitus without complications
CPT/HCPCS: 93005; 99283

== ENCOUNTER 2021-02-14 16:15 | Emergency (ER) | payer MEDICARE, MEDICAID ==
[~2021-02-14] VITALS: Ht 152.4 cm; Wt 60.0 kg
--- NOTE | 2021-02-14 16:39 | NUR ---
CC OF SOB AND COUGH. PT STATES SHE HAD SPILLED WATER ON HER OXYGEN CONCENTRATOR AND HAS BEEN INHALING WATER SINCE THEN AND STARTED COUGHING. PT WAS SEEN HERE WEDNESDAY AND TOLD TO FOLLOW UP WITH CARDS AND PULM. PT STATES SHE HAS CARDS F/U ON February AND PULM IS UNABLE TO SEE HER UNTIL . HX OF COPD AND ON 6 L O2.
[2021-02-14] MEDS ORDERED: ALBUTEROL/IPRATROPIUM 2.5MG/0.5MG, 3 ML ONE (17:19)
[2021-02-14 17:26] LABS: BASOPHILS % (AUTO) 1 % (0-1); EOSINOPHILS % (AUTO) 3 % (1-7); LYMPHOCYTES % (AUTO) 13 % (22-44); MEAN CORPUSCULAR HEMOGLOBIN 30.7 pg (27.0-34.8); MEAN PLATELET VOLUME 7.2 fL (7.4-10.4); MONOCYTES % (AUTO) 10 % (2-9); NEUTROPHILS % (AUTO) 74 % (42-75); PLATELET COUNT 220 x10^3/uL (130-400); RED BLOOD COUNT 4.72 x10^6/uL (3.82-5.3); RED CELL DISTRIBUTION WIDTH 13.9 % (9.6-15.2)
[2021-02-14 17:29] LABS: MD NO
[2021-02-14] MEDS ORDERED: ALBUTEROL/IPRATROPIUM 2.5MG/0.5MG, 3 ML NPPB ONE (17:30)
[2021-02-14 17:39] LABS: ALANINE AMINOTRANSFERASE 19 U/L (12-78); ALBUMIN 3.2 g/dL (3.4-5.0); ANION GAP 5 mmol/L (5-15); CALCIUM 8.3 mg/dL (8.5-10.1); CHLORIDE 108 mmol/L (98-107); CREATININE 0.85 mg/dL (0.55-1.02)
[2021-02-14 17:44] LABS: ALKALINE PHOSPHATASE 94 U/L (45-117); BILIRUBIN,TOTAL 0.3 mg/dL (0.2-1.0); TOTAL PROTEIN 6.3 g/dL (6.4-8.2); TROPONIN I < 0.015 ng/mL (0.000-0.045)
[2021-02-14 19:18] VITALS: BP 121/73
== END 2021-02-14 19:20 | disposition home or self-care (01) ==
LOC: ED 16:48
DX: I27.0 Primary pulmonary hypertension (principal); R06.00 Dyspnea, unspecified; R94.31 Abnormal electrocardiogram [ECG] [EKG]
CPT/HCPCS: 36415; 71045; 80053; 83880; 84484; 85025; 93005; 94640; 99285; J7512

== ENCOUNTER 2021-04-29 15:55 | Inpatient (IN) | payer MEDICARE, MEDICAID ==
[~2021-04-29] VITALS: Ht 154.9 cm; Wt 68.8 kg
--- NOTE | 2021-04-29 16:08 | NUR ---
BIBA FROM HOME WITH C/O SOB X 2 DAYS, DENIES CP. PER EMS, PT HAS COPD AND NORMALLY WEARS 6L O2 AT HOME, HOME O2 SAT WAS 70S, PLACED ON 10L 02, NOW O2 SAT 97% PT A&O, RESPS EVEN AND RAPID, VSS, NADN. CALL LIGHT IN REACH, ALL MONITORS ATTACHED, SINUS TACH.
--- NOTE | 2021-04-29 16:14 | NUR ---
OPAL RENAE AT BEDSIDE FOR EVAL
[2021-04-29] MEDS ORDERED: methylPREDNISolone SOD SUCC 125 MG/2 ML ONE (16:25)
[2021-04-29] MEDS ORDERED: methylPREDNISolone SOD SUCC 125 MG/2 ML IV ONE (16:30)
[2021-04-29] MEDS ORDERED: SODIUM CHLORIDE FLUSH 10ML SYR IVF ONE (16:30)
[2021-04-29] MEDS ORDERED: ALBUTEROL/IPRATROPIUM 2.5MG/0.5MG, 3 ML NPPB SCH (16:30)
[2021-04-29] MEDS ORDERED: FURO20TA3 PO ×2 (16:47→16:54)
[2021-04-29] MEDS ORDERED: POTA10CA PO ×2 (16:47→16:54)
--- NOTE | 2021-04-29 16:56 | NUR ---
PIV placed, labs drawn, meds admin per order, pt tolerated well. pt a&o, resps even and unlabored, vss, nadn. all monitors attached, nsr.
[2021-04-29] MEDS ORDERED: ALBUTEROL SULFATE 2.5 MG/3 ML ONE (17:00)
[2021-04-29 17:02] LABS: BASOPHILS % (AUTO) 1 % (0-1); EOSINOPHILS % (AUTO) 2 % (1-7); LYMPHOCYTES % (AUTO) 12 % (22-44); MEAN CORPUSCULAR HEMOGLOBIN 30.3 pg (27.0-34.8); MEAN CORPUSCULAR HGB CONC 33.9 g/dL (32.4-35.8); MEAN PLATELET VOLUME 7.6 fL (7.4-10.4); MONOCYTES % (AUTO) 8 % (2-9); NEUTROPHILS % (AUTO) 77 % (42-75); PLATELET COUNT 218 x10^3/uL (130-400); RED BLOOD COUNT 5.26 x10^6/uL (3.82-5.3); RED CELL DISTRIBUTION WIDTH 13.2 % (9.6-15.2)
[2021-04-29 17:06] LABS: CALCIUM 9.1 mg/dL (8.5-10.1); CHLORIDE 105 mmol/L (98-107)
[2021-04-29 17:15] LABS: ALBUMIN 3.4 g/dL (3.4-5.0); ANION GAP 8 mmol/L (5-15); CREATININE 0.91 mg/dL (0.55-1.02); TROPONIN I < 0.015 ng/mL (0.000-0.045)
--- NOTE | 2021-04-29 17:19 | NUR ---
breathing tx in progress, pt tolerating well, vss, nadn.
--- NOTE | 2021-04-29 18:00 | NUR ---
pt sitting in bed, a&o, resps even and unlabored, vss, nadn. all monitors attached, nsr.
--- NOTE | 2021-04-29 18:49 | NUR ---
report given to Fabiola CAREY
--- NOTE | 2021-04-29 18:50 | NUR ---
FIRST ENCOUNTER WITH PATIENT. PATIENT SITTING ON EDGE OF STRETCHER REQUESTING WATER. OK FOR PATIENT TO HAVE WATER PER MD RENAE. OC REQUESTING RT TO COME TO BEDSIDE AND INITIATE HIGH FLOW NC. WILL CALL RT.
--- NOTE | 2021-04-29 19:08 | NUR ---
RT AT BEDSIDE
[2021-04-29] MEDS ORDERED: SODIUM CHLORIDE FLUSH 10ML SYR IVF PRN (19:30)
[2021-04-29] MEDS ORDERED: GUAIFENESIN/DM 200-20MG, 10ML UDC PO PRN (20:00)
[2021-04-29] MEDS ORDERED: POLYETHYLENE GLYCOL 17 GM PACKET PO PRN (20:00)
[2021-04-29] MEDS ORDERED: BISACODYL 10 MG SUPP PR PRN (20:00)
[2021-04-29] MEDS: HEPARIN 5,000 UNITS/ML, 1ML SQ SCH (20:00)
[2021-04-29] MEDS ORDERED: ONDANSETRON ODT 4 MG PO PRN (20:00)
[2021-04-29] MEDS ORDERED: POTASSIUM CHLORIDE 10 MEQ TABLET.ER PO PRN (20:00)
--- NOTE | 2021-04-29 20:00 | NUR ---
REPORT GIVEN TO CHERRY CHURCH
[2021-04-29] MEDS ORDERED: IPRATROPIUM 0.5 MG/2.5 ML INHA NPPB SCH (20:30)
[2021-04-29 20:41] VITALS: BP 108/71
[2021-04-29] MEDS: SODIUM CHLORIDE FLUSH 10ML SYR IVF SCH (20:51)
[2021-04-29] MEDS: TREPROSTINIL DIOLAMINE PO SCH (21:00)
[2021-04-30] MEDS: ACETAMINOPHEN 325 MG TABLET PO PRN ×2 (00:05→14:19)
[2021-04-30] MEDS: methylPREDNISolone SOD SUCC 125 MG/2 ML IVPush SCH ×4 (00:06→17:21)
[2021-04-30 00:54] VITALS: BP 102/73
[2021-04-30] MEDS: HEPARIN 5,000 UNITS/ML, 1ML SQ SCH ×3 (03:10→20:00)
[2021-04-30 05:44] LABS: BASOPHILS % (AUTO) 1 % (0-1); EOSINOPHILS % (AUTO) 0 % (1-7); LYMPHOCYTES % (AUTO) 7 % (22-44); MEAN CORPUSCULAR HEMOGLOBIN 30.2 pg (27.0-34.8); MEAN CORPUSCULAR HGB CONC 34.1 g/dL (32.4-35.8); MEAN PLATELET VOLUME 7.4 fL (7.4-10.4); MONOCYTES % (AUTO) 1 % (2-9); NEUTROPHILS % (AUTO) 91 % (42-75); PLATELET COUNT 202 x10^3/uL (130-400); RED BLOOD COUNT 5.05 x10^6/uL (3.82-5.3); RED CELL DISTRIBUTION WIDTH 13.1 % (9.6-15.2)
[2021-04-30 05:58] LABS: ANION GAP 5 mmol/L (5-15); CALCIUM 8.9 mg/dL (8.5-10.1); CHLORIDE 107 mmol/L (98-107)
[2021-04-30] MEDS: LEVOTHYROXINE 88 MCG TABLET PO SCH (05:58)
[2021-04-30] MEDS: ALBUTEROL/IPRATROPIUM 2.5MG/0.5MG, 3 ML NPPB SCH ×5 (06:52→19:16)
[2021-04-30 07:04] VITALS: BP 103/65
[2021-04-30] MEDS: TEMPLATE NON-FORMULARY MED. (Macitentan** (Opsumit**) 10 MG) PO SCH (07:38)
[2021-04-30] MEDS: SODIUM CHLORIDE FLUSH 10ML SYR IVF SCH ×2 (07:41→21:02)
[2021-04-30] MEDS: FUROSEMIDE 20 MG TABLET PO SCH (07:41)
[2021-04-30] MEDS: SENNA/DOCUSATE TABLET PO SCH (07:43)
[2021-04-30] MEDS ORDERED: SPIRONOLACTONE 50 MG TABLET PO SCH (09:00)
[2021-04-30] MEDS ORDERED: TIOTROPIUM BROMIDE 18 MCG/INH INH SCH ×2 (09:00)
[2021-04-30] MEDS: TREPROSTINIL DIOLAMINE PO SCH (09:00)
[2021-04-30] MEDS ORDERED: SILDENAFIL 20 MG TABLET PO SCH (12:30)
[2021-04-30 12:40] VITALS: BP 108/68
[2021-04-30] MEDS: SPIRONOLACTONE 50 MG TABLET PO SCH (12:50)
[2021-04-30] MEDS: SILDENAFIL 20 MG TABLET PO SCH (16:00)
[2021-04-30] MEDS ORDERED: UPTRAVI 800 MCG HOMEMEDPO SCH (20:00)
[2021-04-30 20:01] VITALS: BP 110/69
[2021-04-30] MEDS: UPTRAVI 800 MCG HOMEMEDPO SCH (21:01)
[2021-05-01] MEDS: SILDENAFIL 20 MG TABLET PO SCH ×4 (00:02→23:35)
[2021-05-01] MEDS: methylPREDNISolone SOD SUCC 125 MG/2 ML IVPush SCH ×5 (00:02→23:35)
[2021-05-01 00:35] VITALS: BP 108/70
[2021-05-01] MEDS: HEPARIN 5,000 UNITS/ML, 1ML SQ SCH ×3 (04:00→19:47)
[2021-05-01] MEDS: LEVOTHYROXINE 88 MCG TABLET PO SCH (06:16)
[2021-05-01] MEDS: UPTRAVI 800 MCG HOMEMEDPO SCH ×2 (08:00→19:51)
[2021-05-01] MEDS: FUROSEMIDE 20 MG TABLET PO SCH (08:32)
[2021-05-01] MEDS: SENNA/DOCUSATE TABLET PO SCH (08:33)
[2021-05-01] MEDS: TEMPLATE NON-FORMULARY MED. (Macitentan** (Opsumit**) 10 MG) PO SCH (08:34)
[2021-05-01 08:47] VITALS: BP 109/69
[2021-05-01] MEDS: SODIUM CHLORIDE FLUSH 10ML SYR IVF SCH ×2 (09:00→19:52)
[2021-05-01] MEDS: ALBUTEROL/IPRATROPIUM 2.5MG/0.5MG, 3 ML NPPB SCH ×4 (10:40→20:00)
[2021-05-01] MEDS: SPIRONOLACTONE 50 MG TABLET PO SCH (13:42)
[2021-05-01] MEDS: ACETAMINOPHEN 325 MG TABLET PO PRN ×2 (13:50→23:43)
[2021-05-01 14:53] VITALS: BP 103/61
[2021-05-01] MEDS: FLUTICASONE NASAL SPRAY 16GM NAS SCH (19:53)
[2021-05-01 19:55] VITALS: BP 125/65
[2021-05-01 21:16] VITALS: BP 112/74
[2021-05-02 01:31] VITALS: BP 110/66
[2021-05-02] MEDS: HEPARIN 5,000 UNITS/ML, 1ML SQ SCH ×3 (04:00→20:00)
[2021-05-02] MEDS: LEVOTHYROXINE 88 MCG TABLET PO SCH (05:52)
[2021-05-02] MEDS: methylPREDNISolone SOD SUCC 125 MG/2 ML IVPush SCH ×4 (05:53→23:00)
[2021-05-02] MEDS: ACETAMINOPHEN 325 MG TABLET PO PRN (06:36)
[2021-05-02] MEDS: ALBUTEROL/IPRATROPIUM 2.5MG/0.5MG, 3 ML NPPB SCH ×4 (07:00→19:15)
[2021-05-02] MEDS: SILDENAFIL 20 MG TABLET PO SCH ×3 (07:49→23:00)
[2021-05-02] MEDS: FLUTICASONE NASAL SPRAY 16GM NAS SCH ×2 (07:49→21:00)
[2021-05-02] MEDS: FUROSEMIDE 20 MG TABLET PO SCH (07:49)
[2021-05-02] MEDS: TEMPLATE NON-FORMULARY MED. (Macitentan** (Opsumit**) 10 MG) PO SCH (07:50)
[2021-05-02] MEDS: SENNA/DOCUSATE TABLET PO SCH (07:50)
[2021-05-02] MEDS: UPTRAVI 800 MCG HOMEMEDPO SCH (07:51)
[2021-05-02 08:26] VITALS: BP 110/72
[2021-05-02] MEDS: SODIUM CHLORIDE FLUSH 10ML SYR IVF SCH ×2 (09:00→21:00)
[2021-05-02] MEDS: SPIRONOLACTONE 50 MG TABLET PO SCH (12:39)
[2021-05-02] MEDS: LIDODERM 5% PATCH TD SCH (13:57)
[2021-05-02 14:00] VITALS: BP 126/74
[2021-05-02 19:20] VITALS: BP 105/68
[2021-05-02] MEDS: UPTRAVI 1000 MCG HOMEMEDPO SCH (20:00)
[2021-05-03 00:56] VITALS: BP 105/63
[2021-05-03] MEDS: HEPARIN 5,000 UNITS/ML, 1ML SQ SCH ×2 (04:00→12:00)
[2021-05-03] MEDS ORDERED: LEVOTHYROXINE 100 MCG TABLET PO SCH (06:00)
[2021-05-03] MEDS: methylPREDNISolone SOD SUCC 125 MG/2 ML IVPush SCH ×2 (06:03→12:11)
[2021-05-03] MEDS: ALBUTEROL/IPRATROPIUM 2.5MG/0.5MG, 3 ML NPPB SCH (06:53)
[2021-05-03 07:15] VITALS: BP 121/64
[2021-05-03] MEDS: FLUTICASONE NASAL SPRAY 16GM NAS SCH (07:30)
[2021-05-03] MEDS: SENNA/DOCUSATE TABLET PO SCH (07:31)
[2021-05-03] MEDS: SILDENAFIL 20 MG TABLET PO SCH (07:31)
[2021-05-03] MEDS: TEMPLATE NON-FORMULARY MED. (Macitentan** (Opsumit**) 10 MG) PO SCH (07:32)
[2021-05-03] MEDS: UPTRAVI 1000 MCG HOMEMEDPO SCH (07:32)
[2021-05-03] MEDS: FUROSEMIDE 20 MG TABLET PO SCH (07:33)
[2021-05-03] MEDS: SODIUM CHLORIDE FLUSH 10ML SYR IVF SCH (07:40)
[2021-05-03] MEDS ORDERED: ALBUTEROL/IPRATROPIUM 2.5MG/0.5MG, 3 ML NPPB PRN (11:00)
[2021-05-03] MEDS: LIDODERM 5% PATCH TD SCH (12:11)
[2021-05-03] MEDS: SPIRONOLACTONE 50 MG TABLET PO SCH (12:11)
[2021-05-03] MEDS ORDERED: SILD20TA PO (12:50)
[2021-05-03] MEDS ORDERED: FLUT16SP24 NAS (12:50)
[2021-05-03] MEDS ORDERED: LIDO700A20 TD (12:50)
== END 2021-05-03 14:28 | disposition home or self-care (01) | DRG 189 ==
LOC: ED 17:31 → EDIP 19:21 → 3N 20:22
PROVIDERS: ADMIT Student in an Organized Health Care Education/Training Program; ATTEND Family Medicine
DX: J96.21 Acute and chronic respiratory failure with hypoxia (principal); J44.1 Chronic obstructive pulmonary disease with (acute) exacerbation; M31.30 Wegener's granulomatosis without renal involvement; J90 Pleural effusion, not elsewhere classified; E89.0 Postprocedural hypothyroidism; I10 Essential (primary) hypertension; J84.10 Pulmonary fibrosis, unspecified; Z66 Do not resuscitate; Z90.12 Acquired absence of left breast and nipple; Z99.81 Dependence on supplemental oxygen; I27.21 Secondary pulmonary arterial hypertension; Z87.891 Personal history of nicotine dependence
CPT/HCPCS: 36415; 71045; 80048; 82040; 83605; 83880; 84484; 85025; 87040; 93005; 93306; 94640; 96374; G0378; J2930

== ENCOUNTER 2021-06-09 20:52 | Inpatient (IN) | payer MEDICARE, MEDICAID ==
[~2021-06-09] VITALS: Ht 152.4 cm; Wt 50.2 kg
[~2021-06-09 20:52] MED LIST changes: -DOXY100C2 PO; +DOXY100C5 PO; +FLUT16SP24 NAS; +FURO20TA3 PO; +POTA10CA PO; +SILD20TA PO
[2021-06-09] MEDS ORDERED: methylPREDNISolone SOD SUCC 125 MG/2 ML ONE (21:25)
[2021-06-09] MEDS ORDERED: ALBUTEROL/IPRATROPIUM 2.5MG/0.5MG, 3 ML ONE (21:25)
[2021-06-09] MEDS ORDERED: methylPREDNISolone SOD SUCC 125 MG/2 ML IV ONE (21:30)
[2021-06-09] MEDS ORDERED: ALBUTEROL/IPRATROPIUM 2.5MG/0.5MG, 3 ML NPPB ONE (21:30)
[2021-06-09 21:33] LABS: BASOPHILS % (AUTO) 1 % (0-1); EOSINOPHILS % (AUTO) 1 % (1-7); LYMPHOCYTES % (AUTO) 8 % (22-44); MEAN CORPUSCULAR HGB CONC 34.5 g/dL (32.4-35.8); MEAN PLATELET VOLUME 7.5 fL (7.4-10.4); NEUTROPHILS % (AUTO) 71 % (42-75); PLATELET COUNT 193 x10^3/uL (130-400); RED BLOOD COUNT 5.21 x10^6/uL (3.82-5.3); RED CELL DISTRIBUTION WIDTH 14.6 % (9.6-15.2)
[2021-06-09 21:42] LABS: ALANINE AMINOTRANSFERASE 13 U/L (12-78); ALBUMIN 3.4 g/dL (3.4-5.0); ANION GAP 8 mmol/L (5-15); CALCIUM 8.4 mg/dL (8.5-10.1); CHLORIDE 102 mmol/L (98-107); CREATININE 0.87 mg/dL (0.55-1.02)
[2021-06-09 21:47] LABS: ALKALINE PHOSPHATASE 103 U/L (45-117); BILIRUBIN,TOTAL 0.5 mg/dL (0.2-1.0); TOTAL PROTEIN 7.4 g/dL (6.4-8.2); TROPONIN I < 0.015 ng/mL (0.000-0.045)
[2021-06-09] MEDS ORDERED: OMNIPAQUE 350 MG/ML, 100ML BOTTLE ONE (22:00)
[2021-06-09 22:11] LABS: MONOCYTES % (AUTO) 19 % (2-9)
[2021-06-09] MEDS ORDERED: FUROSEMIDE 20 MG/2 ML IV ONE (22:30)
[2021-06-10] MEDS ORDERED: ONDANSETRON ODT 4 MG PO PRN
[2021-06-10] MEDS ORDERED: GUAIFENESIN/DM 200-20MG, 10ML UDC PO PRN
[2021-06-10] MEDS ORDERED: ENALAPRILAT 1.25 MG/ML, 2ML IVPush PRN
[2021-06-10] MEDS ORDERED: ONDANSETRON 2MG/ML, 2ML IVPush PRN
[2021-06-10] MEDS ORDERED: SELE800T PO (01:00)
[2021-06-10] MEDS: ENOXAPARIN 40 MG/0.4 ML SQ SCH (01:02)
[2021-06-10 01:08] VITALS: BP 103/70
[2021-06-10] MEDS: methylPREDNISolone SOD SUCC 125 MG/2 ML IVPush SCH ×3 (06:13→18:34)
[2021-06-10] MEDS: LEVOTHYROXINE 88 MCG TABLET PO SCH (06:13)
[2021-06-10 07:26] LABS: BASOPHILS % (AUTO) 1 % (0-1); EOSINOPHILS % (AUTO) 0 % (1-7); LYMPHOCYTES % (AUTO) 6 % (22-44); MEAN CORPUSCULAR HEMOGLOBIN 30.5 pg (27.0-34.8); MEAN CORPUSCULAR HGB CONC 33.8 g/dL (32.4-35.8); MONOCYTES % (AUTO) 2 % (2-9); NEUTROPHILS % (AUTO) 91 % (42-75); PLATELET COUNT 189 x10^3/uL (130-400); RED BLOOD COUNT 5.14 x10^6/uL (3.82-5.3); RED CELL DISTRIBUTION WIDTH 14.1 % (9.6-15.2)
[2021-06-10 07:27] LABS: CHLORIDE 103 mmol/L (98-107)
[2021-06-10] MEDS ORDERED: FUROSEMIDE 20 MG/2 ML IV SCH (07:30)
[2021-06-10 07:42] LABS: ANION GAP 9 mmol/L (5-15); CALCIUM 8.8 mg/dL (8.5-10.1); CREATININE 0.86 mg/dL (0.55-1.02)
[2021-06-10] MEDS: LIDODERM 5% PATCH TD SCH ×2 (08:00→20:24)
[2021-06-10] MEDS ORDERED: POTASSIUM CHLORIDE 20 MEQ TAB.ER.PRT PO SCH (08:00)
[2021-06-10 08:55] VITALS: BP 92/61
[2021-06-10] MEDS: TIOTROPIUM BROMIDE 18 MCG/INH INH SCH (09:00)
[2021-06-10] MEDS ORDERED: FUROSEMIDE 20 MG TABLET PO SCH (09:00)
[2021-06-10] MEDS: FLUTICASONE NASAL SPRAY 16GM NAS SCH ×2 (09:00→21:00)
[2021-06-10] MEDS: SPIRONOLACTONE 50 MG TABLET PO SCH (09:55)
[2021-06-10] MEDS: FUROSEMIDE 20 MG/2 ML IV SCH (12:42)
[2021-06-10 14:00] VITALS: BP 98/63
[2021-06-10] MEDS: ACETAMINOPHEN 325 MG TABLET PO PRN (17:39)
[2021-06-10 20:05] VITALS: BP 94/59
[2021-06-11] MEDS: ENOXAPARIN 40 MG/0.4 ML SQ SCH
[2021-06-11] MEDS: methylPREDNISolone SOD SUCC 125 MG/2 ML IVPush SCH ×4 (00:10→17:46)
[2021-06-11 01:00] VITALS: BP 103/67
[2021-06-11] MEDS: LEVOTHYROXINE 88 MCG TABLET PO SCH (05:56)
[2021-06-11 06:43] LABS: ANION GAP 5 mmol/L (5-15); CALCIUM 8.6 mg/dL (8.5-10.1); CHLORIDE 102 mmol/L (98-107)
[2021-06-11 06:46] LABS: CREATININE 0.74 mg/dL (0.55-1.02)
[2021-06-11] MEDS: FLUTICASONE NASAL SPRAY 16GM NAS SCH ×2 (09:09→20:06)
[2021-06-11] MEDS: FUROSEMIDE 20 MG/2 ML IV SCH (09:09)
[2021-06-11] MEDS: SPIRONOLACTONE 50 MG TABLET PO SCH (09:09)
[2021-06-11] MEDS: POTASSIUM CHLORIDE 10 MEQ TABLET.ER PO SCH (09:09)
[2021-06-11] MEDS: TIOTROPIUM BROMIDE 18 MCG/INH INH SCH (09:09)
[2021-06-11 09:36] VITALS: BP 112/69
[2021-06-11] MEDS: ACETAMINOPHEN 325 MG TABLET PO PRN ×2 (11:30→16:16)
[2021-06-11 13:20] VITALS: BP 104/65
[2021-06-11] MEDS: GUAIFENESIN 200 MG TABLET PO SCH ×2 (16:08→20:05)
[2021-06-11 19:55] VITALS: BP 124/77
[2021-06-11] MEDS: LIDODERM 5% PATCH TD SCH (20:35)
[2021-06-12] MEDS: ENOXAPARIN 40 MG/0.4 ML SQ SCH (00:34)
[2021-06-12] MEDS: methylPREDNISolone SOD SUCC 125 MG/2 ML IVPush SCH ×3 (00:34→11:32)
[2021-06-12 00:35] VITALS: BP 107/59
[2021-06-12] MEDS: LEVOTHYROXINE 88 MCG TABLET PO SCH (06:03)
[2021-06-12] MEDS: GUAIFENESIN 200 MG TABLET PO SCH (06:04)
[2021-06-12 06:47] VITALS: BP 125/73
[2021-06-12] MEDS: POTASSIUM CHLORIDE 10 MEQ TABLET.ER PO SCH (08:59)
[2021-06-12] MEDS: TIOTROPIUM BROMIDE 18 MCG/INH INH SCH (09:00)
[2021-06-12] MEDS: FUROSEMIDE 20 MG/2 ML IV SCH (09:00)
[2021-06-12] MEDS: FLUTICASONE NASAL SPRAY 16GM NAS SCH (09:00)
[2021-06-12] MEDS: SPIRONOLACTONE 50 MG TABLET PO SCH (09:00)
[2021-06-12] MEDS ORDERED: GUAI200T37 PO (10:43)
[2021-06-12] MEDS: ACETAMINOPHEN 325 MG TABLET PO PRN (11:30)
== END 2021-06-12 13:29 | disposition home or self-care (01) | DRG 196 ==
LOC: ED 21:22 → SUATTDRO 23:32 → EDIP 23:34 → 4WST 06-10 00:49
PROVIDERS: ADMIT Internal Medicine; ATTEND Hospitalist
PROC: 5A0935A Assistance with Respiratory Ventilation, Less than 24 Consecutive Hours, High Flow/Velocity Cannula (ICD-10-PCS; principal; 2021-06-12)
DX: J84.10 Pulmonary fibrosis, unspecified (principal); J96.21 Acute and chronic respiratory failure with hypoxia; J90 Pleural effusion, not elsewhere classified; J44.1 Chronic obstructive pulmonary disease with (acute) exacerbation; J81.1 Chronic pulmonary edema; E03.9 Hypothyroidism, unspecified; Z66 Do not resuscitate; I10 Essential (primary) hypertension; I27.21 Secondary pulmonary arterial hypertension; J98.4 Other disorders of lung; Z87.891 Personal history of nicotine dependence
CPT/HCPCS: 36415; 71045; 71275; 80048; 80053; 83605; 83880; 84484; 85025; 87040; 93005; 94667; 99285; G0378; Q9967; J1940; J2930